=== PATIENT | male | born 1980 | race Hispanic/Latino ===

== ENCOUNTER 2017-04-24 19:02 | Observation (INO) | payer OTHER ==
[2017-04-24] MEDS ORDERED: Sodium Chloride 0.9% 1,000 ML IV STA (20:30)
[2017-04-24 20:58] LABS: BASO # 0.1 K/uL (0.0-0.2); BASO % 0.8 % (0.0-2.0); EOS % 0.4 % (0.0-4.0); HEMATOCRIT 42.9 % (35.0-51.0); LYMPH # 1.4 K/uL (1.0-4.3); LYMPH % 14.2 % (20.0-40.0); MEAN CELL VOLUME 86.2 fl (80.0-94.0); MEAN CORPUSCULAR HEMOGLOBIN 29.6 pg (27.0-31.0); MEAN CORPUSCULAR HGB CONC 34.4 g/dL (33.0-37.0); MEAN PLATELET VOLUME 7.1 fl (7.2-11.7); MONO # 1.5 K/uL (0.0-0.8); NEUT % 69.6 % (50.0-75.0); RED CELL DISTRIBUTION WIDTH 12.8 % (11.5-14.5)
[2017-04-24 20:58] LABS: VENOUS BLOOD GAS BASE EXCESS 1.7 mmol/L (0.0-2.0); VENOUS BLOOD GAS PCO2 38 mmHg (40-60); VENOUS BLOOD PH 7.44 (7.32-7.43)
--- NOTE | 2017-04-24 21:19 | ED PDOC ---
HPI: CCC, URI, Sore Throat Time Seen by Provider: 04/24/17 20:09 Chief Complaint (Nursing): Fever Chief Complaint (Provider): Cough History Per: Patient History/Exam Limitations: no limitations Onset/Duration Of Symptoms: Days (4 days), Worse Since Current Symptoms Are (Timing): Still Present Sick Contacts (Context): None Associated Symptoms: Fever, Cough, Sputum, Vomiting, Other (malaise, fatigue, excessive lethargy, shortness of breath especially with exertion) Additional Complaint(s): Patient is a 37 y/o male with no past medical history who presents to the ED complaining of worsening cough x 4 days, with associated fever (maximum temperature 104). Patient also reports associated malaise, fatigue, excessive lethargy, and shortness of breath especially with exertion. He claims to be taking ibuprofen with no relief, and started on Tamiflu [facility] with no relief. He reports that the cough was initially dry but that it developed into small amounts of brownish sputum the last two days, though he notes no hemoptysis. Patient also reports assocaited intractable vomiting 3 days ago, though has had pure PO intake since. He does not have a regular doctor, and has not had recent sick contacts or travel. PMD: FAMILY PROVIDER, NO Past Medical History Reviewed: Historical Data, Nursing Documentation, Vital Signs Vital Signs: Last Vital Signs Temp 99 F 04/25/17 08:25 Pulse 83 04/25/17 08:25 Resp 20 04/25/17 08:25 BP 98/61 L 04/25/17 08:25 Pulse Ox 93 L 04/25/17 08:25 - Medical History PMH: No Chronic Diseases - Surgical History Surgical History: No Surg Hx - Family History Family History: States: No Known Family Hx - Social History Current smoker - smoking cessation education provided: No - Home Medications Home Medications: Ambulatory Orders Medication Instructions Recorded Levofloxacin [Levaquin] 750 mg PO DAILY #7 tablet 04/25/17 guaiFENesin/Dextromethorphan 10 ml PO Q6 PRN #14 udc 04/25/17 [Robitussin DM] - Allergies Allergies/Adverse Reactions: Allergies Allergy/AdvReac Type Severity Reaction Status Date / Time No Known Allergies Allergy Verified 04/24/17 19:51 Review of Systems ROS Statement: Except As Marked, All Systems Reviewed And Found Negative Constitutional: Positive for: Fever Respiratory: Positive for: Cough, Shortness of Breath, SOB with Exertion Gastrointestinal: Positive for: Vomiting (intractable vomiting) Neurological: Positive for: Other (Malaise, fatigue, excessive lethargy) Physical Exam - Reviewed Nursing Documentation Reviewed: Yes Vital Signs Reviewed: Yes - Physical Exam Appears: Positive for: Non-toxic, In Acute Distress Head Exam: Positive for: ATRAUMATIC, NORMOCEPHALIC Skin: Positive for: Warm, Dry Eye Exam: Positive for: EOMI, PERRL ENT: Negative for: Pharyngeal Erythema, Tonsillar Exudate Neck: Positive for: Painless ROM, Supple Cardiovascular/Chest: Positive for: Regular Rate, Rhythm. Negative for: Murmur Respiratory: Positive for: Decreased Breath Sounds (diffusely). Negative for: Wheezing Gastrointestinal/Abdominal: Positive for: Soft. Negative for: Tenderness Back: Positive for: Normal Inspection. Negative for: Decreased ROM Extremity: Positive for: Normal ROM. Negative for: Deformity Lymphatic: Negative for: Adenopathy Neurologic/Psych: Positive for: Alert. Negative for: Motor/Sensory Deficits - Laboratory Results Result Diagrams: 04/25/17 05:20 04/25/17 05:20 - ECG O2 Sat by Pulse Oximetry: 93 (RA) Pulse Ox Interpretation: Normal - Radiology X-Ray: Interpreted by Wa X-Ray Interpretation: Infiltrates (bilateral) - Progress Condition: Improving,but remains with symptoms Medical Decision Making Medical Decision Making: Time: 20:30 Initial Impression: Cough and fever Differential Diagnoses: Influenza, Pneumonia, Viral illness, Bronchitis Initial Plan: --VBG Shock Panel --EKG --Labs --PT/PTT ---Chest X-Ray --Sodium Chloride 0.9% IV 1,000 mls/hr --Toradol 15mg IV --Tylenol 975 mg PO --Blood culture --secured entrance monitor --Influenza A B Time: 21:36 --Albuterol/Ipratropium 3ml INH --Levaquin 750mg IVPB --Peak flow pre/post Scribe Attestation: Documented by Nancy Crocker, acting as a scribe for Jossie Henson MD Provider Scribe Attestation: All medical record entries made by the Scribe were at my direction and personally dictated by me. I have reviewed the chart and agree that the record accurately reflects my personal performance of the history, physical exam, medical decision making, and the department course for this patient. I have also personally directed, reviewed, and agree with the discharge instructions and disposition. Disposition - Clinical Impression Clinical Impression: Pneumonia, Hypoxia Discussed With DrJennifer: Patel Beaver Counseled Patient/Family Regarding: Studies Performed, Diagnosis - Disposition Disposition Time: 21:30 Condition: SERIOUS - Pt Status Changed To: Hospital Disposition Of: Observation - POA Present On Arrival: None
[2017-04-24 21:26] LABS: ALB/GLOB RATIO 1.3 (1.0-2.1); ALKALINE PHOSPHATASE 78 U/L (38-126); ALT/SGPT 92 U/L (21-72); AST/SGOT 83 U/L (17-59); BILIRUBIN,TOTAL 1.2 mg/dl (0.2-1.3); BLOOD UREA NITROGEN 13 mg/dl (9-20); CARBON DIOXIDE 27 mmol/L (22-30); CHLORIDE 97 mmol/L (98-107); GFR AFRICAN-AMERICAN > 60; GLUCOSE,RANDOM 117 mg/dL (75-110); MAGNESIUM 2.2 MG/DL (1.6-2.3); PHOSPHOROUS 3.8 mg/dl (2.5-4.5); POTASSIUM 4.2 MMOL/L (3.6-5.0); SODIUM 137 mmol/l (132-148); TOTAL PROTEIN 8.1 G/DL (6.3-8.2)
[2017-04-24] MEDS ORDERED: levoFLOXacin 750 mg in D5W 150 ML BAG IVPB STA (21:28)
[2017-04-24] MEDS ORDERED: Albuterol-Ipratrop 3 mg / 0.5 (3 ml) UD INH STA (21:36)
[2017-04-24] MEDS ORDERED: levoFLOXacin 750 mg in D5W 750 MG/150 ML BAG IVPB STA (21:49)
[2017-04-24] MEDS ORDERED: Sodium Chloride 0.9% 1,000 ML IV SCH (23:30)
[2017-04-24] MEDS ORDERED: guaiFENesin DM 200 mg-20 mg/10 ml UD PO PRN (23:31)
[2017-04-25] MEDS: Albuterol-Ipratrop 3 mg / 0.5 (3 ml) UD INH SCH ×2 (00:59→07:59)
[2017-04-25 06:44] LABS: HEMATOCRIT 38.2 % (35.0-51.0); MEAN CELL VOLUME 84.4 fl (80.0-94.0); MEAN CORPUSCULAR HEMOGLOBIN 29.5 pg (27.0-31.0); RED CELL DISTRIBUTION WIDTH 12.9 % (11.5-14.5); WHITE BLOOD COUNT 8.8 K/uL (4.8-10.8)
[2017-04-25 08:09] LABS: ALB/GLOB RATIO 1.1 (1.0-2.1); ALKALINE PHOSPHATASE 66 U/L (38-126); ALT/SGPT 86 U/L (21-72); AST/SGOT 71 U/L (17-59); BILIRUBIN,TOTAL 0.7 mg/dl (0.2-1.3); BLOOD UREA NITROGEN 11 mg/dl (9-20); CALCIUM 8.3 mg/dL (8.4-10.2); CARBON DIOXIDE 29 mmol/L (22-30); CHLORIDE 100 mmol/L (98-107); CHOLESTEROL 186 mg/dL (0-199); GFR AFRICAN-AMERICAN > 60; GLUCOSE,RANDOM 102 mg/dL (75-110); POTASSIUM 3.8 MMOL/L (3.6-5.0); SODIUM 137 mmol/l (132-148)
[2017-04-25 08:26] VITALS: BP 98/61; PULSE 83; RESP 20; TEMP 99; O2SAT 93
--- NOTE | 2017-04-25 08:30 | RAD ---
HISTORY: Sepsis Patient COMPARISON: No prior. TECHNIQUE: Chest PA and lateral FINDINGS: LUNGS: No active pulmonary disease. PLEURA: No significant pleural effusion identified. No pneumothorax apparent. CARDIOVASCULAR: No radiographic findings to suggest acute or significant cardiovascular disease. OSSEOUS STRUCTURES: No significant abnormalities. VISUALIZED UPPER ABDOMEN: Normal. OTHER FINDINGS: None. IMPRESSION: No active disease.
[2017-04-25] MEDS ORDERED: Enoxaparin 40 mg Syringe SC SCH (09:00)
[2017-04-25] MEDS ORDERED: levoFLOXacin 750 mg in D5W 750 MG/150 ML BAG IVPB SCH (09:00)
--- NOTE | 2017-04-25 10:36 | CP.PCM.HP ---
<GonzalezHomero olivas - Last Filed: 04/25/17 18:06> History of Present Illness - History of Present Illness History of Present Illness: 37 year old male presented with 4 day history of worsening productive cough and fever despite outpatient treatment with tamiflu.Patient seen at a [facility] for his symptoms. In the ED patient with fever, tachycardia, and hypoxia,he was started on IV vanomycin and levofloxacin as well as 1L bolus. Patient feels 'great' this morning. Has remained afebrile. No sick contacts. 12 point review of systems negative. PMD: none Medications: none Allergies: NKDA Present on Admission - Present on Admission Any Indicators Present on Admission: No Past Patient History - Past Medical History & Family History Past Medical History?: No - Past Social History Smoking Status: Never Smoked - MUSCULOSKELETAL/RHEUMATOLOGICAL Hx Falls: No - PSYCHIATRIC Hx Substance Use: No - ANESTHESIA Hx Anesthesia: Yes Hx Anesthesia Reactions: No Meds Home Medications: Home Medication List Medication Instructions Recorded Confirmed Type Levofloxacin [Levaquin] 750 mg PO DAILY #7 tablet 04/25/17 Rx guaiFENesin/Dextromethorphan 10 ml PO Q6 PRN #14 udc 04/25/17 Rx [Robitussin DM] Allergies/Adverse Reactions: Allergies Allergy/AdvReac Type Severity Reaction Status Date / Time No Known Allergies Allergy Verified 04/24/17 19:51 Physical Exam - Constitutional Appears: Well, Non-toxic, No Acute Distress - Head Exam Head Exam: NORMAL INSPECTION - Eye Exam Eye Exam: Normal appearance Pupil Exam: NORMAL ACCOMODATION - ENT Exam ENT Exam: Mucous Membranes Moist, Normal Exam - Respiratory Exam Respiratory Exam: NORMAL BREATHING PATTERN. absent: Rhonchi, Respiratory Distress - Cardiovascular Exam Cardiovascular Exam: REGULAR RHYTHM - GI/Abdominal Exam GI & Abdominal Exam: Normal Bowel Sounds, Soft. absent: Tenderness - Extremities Exam Extremities exam: Positive for: normal inspection. Negative for: pedal edema - Neurological Exam Neurological exam: Alert, CN II-XII Intact, Oriented x3 - Psychiatric Exam Psychiatric exam: Normal Affect, Normal Mood - Skin Skin Exam: Dry, Intact, Normal Color Results - Vital Signs Recent Vital Signs: Last Vital Signs Temp 99 F 04/25/17 08:25 Pulse 83 04/25/17 08:25 Resp 20 04/25/17 08:25 BP 98/61 L 04/25/17 08:25 Pulse Ox 93 L 04/25/17 08:25 - Labs Result Diagrams: 04/25/17 05:20 04/25/17 05:20 Labs: Laboratory Results - last 24 hr 04/24/17 04/24/17 04/24/17 20:35 20:51 20:51 WBC 10.0 RBC 4.98 Hgb 14.8 Hct 42.9 MCV 86.2 MCH 29.6 MCHC 34.4 RDW 12.8 Plt Count 275 MPV 7.1 L Neut % (Auto) 69.6 Lymph % (Auto) 14.[address] [place] % (Auto) 15.0 H Eos % (Auto) 0.4 Baso % (Auto) 0.8 Neut # 7.0 Lymph # 1.4 [place] # 1.5 H Eos # 0.0 Baso # 0.1 PT INR APTT pO2 40 VBG pH 7.44 H VBG pCO2 38 L VBG HCO3 25.7 VBG Total CO2 27.0 VBG O2 Sat (Calc) 83.8 H VBG Base Excess 1.7 VBG Potassium 3.6 Sodium 133.0 137 Chloride 100.0 97 L Glucose 122 H Lactate 1.2 FiO2 21.0 Potassium 4.2 Carbon Dioxide 27 Anion Gap 17 BUN 13 Creatinine 1.2 Est GFR ( Amer) > 60 Est GFR (Non-Af Amer) > 60 Random Glucose 117 H Calcium 9.0 Phosphorus 3.8 Magnesium 2.2 Total Bilirubin 1.2 AST 83 H ALT 92 H Alkaline Phosphatase 78 Total Creatine Kinase 2078 H Total Protein 8.1 Albumin 4.5 Globulin 3.6 Albumin/Globulin Ratio 1.3 Triglycerides Cholesterol LDL Cholesterol Direct HDL Cholesterol Venous Blood Potassium 3.6 Influenza Typ A,B (EIA) 04/24/17 04/24/17 04/25/17 20:51 20:51 05:20 WBC 8.8 RBC 4.53 Hgb 13.4 Hct 38.2 MCV 84.4 MCH 29.5 MCHC 35.0 RDW 12.9 Plt Count 248 MPV Neut % (Auto) Lymph % (Auto) [place] % (Auto) Eos % (Auto) Baso % (Auto) Neut # Lymph # [place] # Eos # Baso # PT 14.1 H INR 1.2 APTT 31.0 pO2 VBG pH VBG pCO2 VBG HCO3 VBG Total CO2 VBG O2 Sat (Calc) VBG Base Excess VBG Potassium Sodium Chloride Glucose Lactate FiO2 Potassium Carbon Dioxide Anion Gap BUN Creatinine Est GFR ( Amer) Est GFR (Non-Af Amer) Random Glucose Calcium Phosphorus Magnesium Total Bilirubin AST ALT Alkaline Phosphatase Total Creatine Kinase Total Protein Albumin Globulin Albumin/Globulin Ratio Triglycerides Cholesterol LDL Cholesterol Direct HDL Cholesterol Venous Blood Potassium Influenza Typ A,B (EIA) Negative for flu a/b 04/25/17 04/25/17 05:20 09:45 WBC RBC Hgb Hct MCV MCH MCHC RDW Plt Count MPV Neut % (Auto) Lymph % (Auto) [place] % (Auto) Eos % (Auto) Baso % (Auto) Neut # Lymph # [place] # Eos # Baso # PT INR APTT pO2 VBG pH VBG pCO2 VBG HCO3 VBG Total CO2 VBG O2 Sat (Calc) VBG Base Excess VBG Potassium Sodium 137 Chloride 100 Glucose Lactate FiO2 Potassium 3.8 Carbon Dioxide 29 Anion Gap 12 BUN 11 Creatinine 0.9 Est GFR ( Amer) > 60 Est GFR (Non-Af Amer) > 60 Random Glucose 102 Calcium 8.3 L Phosphorus Magnesium Total Bilirubin 0.7 AST 71 H ALT 86 H Alkaline Phosphatase 66 Total Creatine Kinase 2083 H Total Protein 7.0 Albumin 3.7 Globulin 3.3 Albumin/Globulin Ratio 1.1 Triglycerides 102 Cholesterol 186 LDL Cholesterol Direct 127 HDL Cholesterol 27 L Venous Blood Potassium Influenza Typ A,B (EIA) Assessment & Plan - Assessment and Plan (Free Text) Assessment: 37 year old female with no PMH admitted with fever, tachycardia and hypoxia. Appears well this morning, has remained afebrile and is tolerating PO diet. He is hemodynamically stable. #Acute Bronchitis -Continue with Levofloxacin 750 mg PO as outpatient. -Can be discharged with follow up as outpatient with Dr. Beaver. <Patel Beaver - Last Filed: 04/26/17 14:21> Results - Vital Signs Recent Vital Signs: Last Vital Signs Temp 99 F 04/25/17 08:25 Pulse 83 04/25/17 08:25 Resp 20 04/25/17 08:25 BP 98/61 L 04/25/17 08:25 Pulse Ox 93 L 04/25/17 08:25 - Labs Result Diagrams: 04/25/17 05:20 04/25/17 05:20 Assessment & Plan - Assessment and Plan (Free Text) Assessment: Patient was personally seen and examined by me in rounds with residents. Available labs and diagnostic data reviewed. Case, Patient's condition and management plan discussed with residents in rounds. Agree with resident's progress note. Plan: As ordered.
[2017-04-25 10:43] LABS: T4 6.17 ug/dl (5.5-11.0)
--- NOTE | 2017-04-25 12:53 | CARD ---
APPROVED REPORT EKG Measurement Heart [id number] <Conclusion> Normal sinus rhythm Normal ECG
== END 2017-04-25 11:25 | disposition home or self-care (01) ==
LOC: H.ER 19:02 → H.ERHOLD 21:43 → H.MEDSURG1 22:45
PROVIDERS: ADMIT Internal Medicine; ATTEND Internal Medicine
DX: J20.9 Acute bronchitis, unspecified (principal); R09.02 Hypoxemia
CPT/HCPCS: 36415; 71020; 80053; 80061; 82550; 82607; 82803; 83735; 84100; 84436; 84480; 85025; 85027; 85610; 85730; 87040; 87804; 93005; 94150; 94640; 96360; 96365; 99285; G0378; J1885; J7040